=== PATIENT | male | born 1945 | race Caucasian/White ===

== ENCOUNTER → 2024-06-03 | Outpatient (CLI) | payer MEDICARE, BC, SELFPAY ==
--- NOTE | 2024-06-03 14:30 | XR_ITS ---
Examination: Bone densitometry Date and time of exam:June 03, 2024 1422 hours INDICATIONS: Family history, mother osteoporosis, personal history rheumatoid arthritis Technique: Lumbar spine and forearm total bone mineralization values of an calculated. Peak reference and age match control results have been displayed. Findings: Lumbar spine total bone mineralization is1.348 gm/cm2. This is 2.5 standard deviations above peak reference. This is 3.6 standard deviations above age-matched controls. Forearm total bone mineralization is 0.675 gm/cm2 This is 0.1 standard deviations below peak reference. This is 1.4 standard deviations above age-matched controls Impression: There is normal mineralization based on lumbar spine measurements. There is normal mineralization based on forearm measurements
== END | disposition home or self-care (01) ==
PROVIDERS: Referring Provider Family Medicine; Visit Provider Family Medicine
DX: Z13.820 Encounter for screening for osteoporosis (principal)
CPT/HCPCS: 77080

== ENCOUNTER → 2024-07-16 | Outpatient (CLI) | payer MEDICARE, BC, SELFPAY ==
[2024-07-16 13:40] LABS: Basophils # (Auto) 0.1 Thou/mm3 (0.0-0.2); Basophils % (Auto) 1 % (0-2.5); Eosinophils # (Auto) 0.1 Thou/mm3 (0.0-0.5); Eosinophils % (Auto) 2 % (0-10); Hematocrit 52.6 % (41.0-53.0); Hemoglobin 17.5 g/dL (13.5-16.0); Immature Granulocytes % (Auto) 0 % (0-0); Immature Granulocytes Auto 0.03 Thou/mm3 (0.00-0.00); Lymphocytes # (Auto) 1.6 Thou/mm3 (1.0-4.8); Lymphocytes % (Auto) 20 % (10-50); Mean Corpuscular HGB Conc 33.3 g/dl (31.0-37.0); Mean Corpuscular Hemoglobin 32.1 pg (25.0-35.0); Mean Corpuscular Volume 97 fL (80-100); Monocytes # (Auto) 0.9 Thou/mm3 (0.0-0.8); Monocytes % (Auto) 11 % (0-12); Neutrophils # (Auto) 5.4 Thou/mm3 (1.8-7.7); Neutrophils % (Auto) 67 % (37-80); Nucleated Red Blood Cell % 0 /100 WBC (0); Platelet Count 170 Thou/mm3 (140-440); RDW Standard Deviation 57.1 fL (35.1-43.9); Red Blood Count 5.45 Miln/mm3 (4.50-5.90); White Blood Count 8.1 Thou/mm3 (3.8-10.6)
== END | disposition home or self-care (01) ==
LOC: COPL 13:02
PROVIDERS: PCP Family Medicine; Referring Provider Family Medicine; Visit Provider Family Medicine
DX: J18.9 Pneumonia, unspecified organism (principal)
CPT/HCPCS: 36415; 85025

== ENCOUNTER 2025-02-16 16:12 | Emergency (ER) | payer MEDICARE, BC, SELFPAY ==
[2025-02-16 16:13] VITALS: BMI 31.4
[2025-02-16 16:25] VITALS: BP 146/92; PULSE 72; RESP 20; TEMP 36.9; O2SAT 95
--- NOTE | 2025-02-16 16:54 | EDNOTE_ITS ---
<Statement entered by Rachel Herrera MD - 03/03/25 06:35> As co-signing physician, I was present and available for consult prn. I concur with the plan and care as documented by the midlevel provider. ED Back Injury Pain RME/HPI General Chief Complaint: General Adult/Misc Complain Stated Complaint: SCIATIC PAIN X 2 DAYS Time Seen by Provider: 02/16/25 16:49 Source: patient Arrival date/time: 02/16/25 16:12 79-year-old male with a history of hyperlipidemia, hypertension, sciatica presents to the emergency room with a chief complaint of right sided sciatic pain x 2 days Mode of arrival: ambulatory Limitations: no limitations Related Data Home Medications ?Medication ?Instructions ?Recorded ?Confirmed atenolol 50 mg tablet 25 mg PO DAILY ##180 7 07/07/23 niacin 500 mg tablet 500 mg PO QDAY 02/19/1811/23 zolpidem 10 mg tablet (Ambien) 10 mg PO QPM 02/19/18 0 07/07/23 losartan 100 mg tablet 100 mg PO QDAY 06/03/1911/23 lovastatin 20 mg tablet 20 mg PO QDAY 01/27/2007/07 semaglutide 2 mg/dose (8 mg/3 mL) 2 mg subcut QWEEK 07/07/23 subcutaneous pen injector (Ozempic) vibegron 75 mg tablet (Gemtesa) 75 mg PO QDAY 07/07/23 07/07/23 Previous Rx's ?Medication ?Instructions ?Recorded hydrocodone 5 mg-acetaminophen 325 1 tab PO TID #20 ta bs 01/27/22 mg tablet Allergies Allergy/AdvReac Type Severity Reaction Status Date / Time bee venom protein (honey bee) Allergy Severe Anaphylaxis Verified 02/16/25 16:22 beet Allergy Severe Hives Verified 02/16/25 16:22 cashew nut Allergy Severe Diarrhea Verified 02/16/25 16:22 hydromorphone HCl Allergy Severe Hives Verified 02/16/25 16:22 Iodinated Contrast Media Allergy Severe Hives Verified 02/16/25 16:22 iodine Allergy Severe Hives Verified 02/16/25 16:22 morphine Allergy Severe Anaphylaxis Verified 02/16/25 16:22 Penicillins Allergy Severe Anaphylaxis Verified 02/16/25 16:22 primidone (From Mysoline) Allergy Severe Hives Verified 02/16/25 16:22 metronidazole Allergy Intermediate Diarrhea Verified 02/16/25 16:22 levofloxacin AdvReac Severe Swelling Verified 02/16/25 16:22 Review of Systems Review of Systems Systems Reviewed: All systems reviewed, normal except as documented Constitutional Constitutional: Reports system reviewed and no additional complaints, except as documented, Denies fatigue, Denies fever(s), Denies headache(s) and Denies weakness Eyes Eyes: Reports system reviewed and no additional complaints, except as documented, Denies blurry vision and Denies change in vision ENT Ears, Nose, Mouth, and Throat: Reports system reviewed and no additional complaints, except as documented, Denies otalgia, Denies headache(s), Denies nasal congestion, Denies throat swelling and Denies vertigo Cardiovascular Cardiovascular: Reports system reviewed and no additional complaints, except as documented, Denies chest pain, Denies dyspnea and Denies dyspnea on exertion Respiratory Respiratory: Reports system reviewed and no additional complaints, except as documented, Denies chest congestion, Denies cough, Denies dyspnea, Denies dyspnea on exertion and Denies wheezing Gastrointestinal Gastrointestinal: Reports system reviewed and no additional complaints, except as documented, Denies abdominal pain, Denies cramping, Denies nausea and Denies vomiting Genitourinary Genitourinary: Reports system reviewed and no additional complaints, except as documented, Denies dysuria and Denies hematuria Musculoskeletal Musculoskeletal: Reports system reviewed and no additional complaints, except as documented, Reports back pain and Reports radiating pain into limb Integumentary/Breasts Skin/Breast: Reports system reviewed and no additional complaints, except as documented and Denies wounds Neurologic Neurologic: Reports system reviewed and no additional complaints, except as documented, Denies confusion, Denies headache(s), Denies lack of coordination, Denies vertigo and Denies weakness Psychiatric Psychiatric: Reports system reviewed and no additional complaints, except as documented, Denies anxiety, Denies confusion, Denies depression, Denies paranoia, Denies suicidal ideation and Denies tactile hallucinations Endocrine Endocrine: Reports system reviewed and no additional complaints, except as documented and Denies fatigue Hematologic/Lymphatic Hematologic/Lymphatic: Reports system reviewed and no additional complaints, except as documented and Denies lymphadenopathy Allergic/Immunologic Allergic/Immunologic: Reports system reviewed and no additional complaints, except as documented, Denies throat swelling, Denies urticaria and Denies wheezing Past Medical History Past Medical History NEUROLOGIC: Positive Neurological Disorders, Cerebrovascular Accident and Head Trauma; Negative Seizures CARDIAC: Positive Cardiac Disorders, Atrial Fibrillation, Hypercholesterolemia and Hypertension; Negative Heart Murmur or Congestive Heart Failure RESPIRATORY: Positive Asthma, Bronchitis, Pneumonia and Sleep Apnea; Negative Chronic Obstructive Pulmonary Disease (COPD) GASTROINTESTINAL: Positive Gastrointestinal Disorders, Gastrointestinal Bleed, Diverticulosis, Ulcer and Hemorrhoids GENITOURINARY: Positive Prostate Cancer; Negative Genitourinary Disorders or Renal Disease MUSCULOSKELETAL: Positive Musculoskeletal Disorders, Arthritis, Gout, Carpal Tunnel Syndrome and Fractures ENT: Positive Head Trauma; Negative Glaucoma ENDOCRINE: Negative Endocrine Disorders, Diabetes Mellitus Type 1 or Diabetes Mellitus Type 2 HEMATOLOGIC: Negative Blood Disorders or Sickle Cell Disease OTHER HISTORY: Positive Hospitalization, Shingles, Blood Transfusions, MRSA, Chicken Pox, Measles, Mumps and Prostate Cancer; Negative Blood Transfusion Reaction or Anesthesia Reactions Family History FAMILY HISTORY: Positive Family Psychiatric Problems, Family Cardiac Disorders and Family Surgery; Negative Family Cancer Surgical History SURGICAL: Positive Pacemaker, Angiogram, Tonsillectomy, Joint Replacement and Open Reduction Internal Fixation Social History SMOKING STATUS: Former smoker ED Exam General Limitations: Present no limitations General appearance: Present alert and in no apparent distress Head Head exam: Present atraumatic Eye Eye exam: Present normal appearance, PERRL and EOMI ENT ENT exam: Present normal exam, normal oropharynx and mucous membranes moist Neck Neck exam: Present normal inspection, full ROM and trachea midline Chest Chest inspection: Present normal inspection and symmetric chest wall rise Respiratory Respiratory exam: Present normal lung sounds bilaterally Cardiovascular Cardiovascular exam: Present regular rate, normal rhythm and normal heart sounds Abdominal Exam Abdominal exam: Present soft and normal bowel sounds Extremities Exam Extremities exam: Present normal inspection and full ROM Back Exam Back exam: Present normal inspection, full ROM and sciatic notch tenderness (R) Neurological Exam Neurological exam: Present alert, oriented X3 and CN II-XII intact Psychiatric Psychiatric exam: Present normal affect and normal mood Skin Skin exam: Present warm, dry, intact and normal color Course Quality Measures none Orders Category Date Time Status Ketorolac Inj [Toradol Inj] Med 02/16/25 16:53 Once 60 mg IM X1 ONE Vital Signs Vital signs: Vital Signs Temperature 98.5 F 02/16/25 16:25 Pulse Rate 72 02/16/25 16:25 Respiratory Rate 20 02/16/25 16:25 Blood Pressure 146/92 H 02/16/25 16:25 Pulse Oximetry (%) 95 02/16/25 16:25 Oxygen Delivery Method Room Air 02/16/25 16:25 O2 saturation 95% within normal limits Back Pain / Injury MDM Narrative MDM Narrative:: 79-year-old male with a history of hyperlipidemia, hypertension, sciatica presents to the emergency room with a chief complaint of right sided sciatic pain x 2 days Patient is hemodynamically stable and in no apparent distress Patient's only complaint is due to his sciatica. Patient states he is having numbness running down his right leg. Patient has a history of back surgeries and sees a spinal specialist already A shot of Toradol was given with significant improvement to the patient's symptoms Patient was discharged and educated to follow-up with primary care provider in the next 24 to 48 hours and return to the emergency room for any evidence of worsening signs or symptoms Patient data External records reviewed:: [facility] previous records Clinical information provided by:: patient Social determinants that could affect healthcare access:: none Patient has the following chronic illnesses:: Atrial fibrillation, BPH, hyperlipidemia, How is presenting disease/condition affected by chronic disease/condition?: no chronic disease Evaluation data The following diagnostics were reviewed and interpreted by me:: lab results and radiology exam(s) Lab and/or radiology exams considered but not ordered:: Labs and radiology exams considered and ordered Interpretation Summary: N/A Medications / Prescriptions Medications or Prescriptions considered but not ordered:: Medication given Medication administrations:: Medication given Consultations Consultation(s) initiated? (list below): No Diagnosis Differential diagnosis back pain/injury: lumbar radiculopathy, sciatica and thoracic back pain Most likely diagnosis given after review of the tests above:: Sciatica Admission Indicated Admission indicated?: not indicated Admission Request Was there a request for admission?: No Disposition Plan Disposition Plan: Discharge Discharge Attestation Discharge Attestation: The patient and all family members were given an opportunity to ask questions and understood the discharge instructions. Discharge instructions specifically effects, indications for sooner follow up or return to the emergency department, and the expected course of current diagnosis. Patient condition: Stable Discharge Plan Plan Patient Disposition: HOME (Self Care) Discharge Disposition comment: Stable Prescriptions/Referrals Prescriptions/Med Rec: No Action Ozempic 2 mg/dose (8 mg/3 mL) pen injector 2 mg subcut QWEEK Gemtesa 75 mg tablet 75 mg PO QDAY atenolol 50 MG tablet 25 mg PO DAILY Qty: 180 niacin 500 mg Tablet 500 mg PO QDAY zolpidem [Ambien] 10 mg Tablet 10 mg PO QPM losartan 100 mg Tablet 100 mg PO QDAY lovastatin 20 mg Tablet 20 mg PO QDAY hydrocodone-acetaminophen 5-325 mg tablet 1 tab PO TID MDD 3 Qty: 20 0RF Referrals: No Primary/Family,Physician [Primary Care Provider] - In 1 week Problem List Clinical Impression: Sciatica of right side Patient/Caregiver Discharge Instructions Education Materials: ED Sciatica Additional Instructions: Please follow-up with your primary care provider in the next 24 to 48 hours For any evidence of worsening signs or symptoms return to the emergency room immediately Print Language: Persian Stand Alone Forms: Jimena Award Info., Patient Portal Info Letter PA/HEAD BANQUET WAITER/WAITRESS Supervising Physician PA/HEAD BANQUET WAITER/WAITRESS Supervising Physician: Dr. HERRERA
[2025-02-16] MEDS: KETOROLAC INJ 60 MG/2 ML VIAL IM (17:07)
== END 2025-02-16 17:11 | disposition home or self-care (01) ==
PROVIDERS: Emergency Provider Emergency Medicine
DX: M54.31 Sciatica, right side (principal); E78.5 Hyperlipidemia, unspecified; I10 Essential (primary) hypertension; I48.91 Unspecified atrial fibrillation; N40.0 Benign prostatic hyperplasia without lower urinary tract symptoms; Z79.85 Long-term (current) use of injectable non-insulin antidiabetic drugs; Z79.899 Other long term (current) drug therapy; Z88.0 Allergy status to penicillin; Z88.5 Allergy status to narcotic agent; Z88.3 Allergy status to other anti-infective agents; Z88.8 Allergy status to other drugs, medicaments and biological substances; Z91.030 Bee allergy status; Z91.041 Radiographic dye allergy status
CPT/HCPCS: 96372; 99282; J1885

== ENCOUNTER 2025-06-13 10:06 | Emergency (ER) | payer MEDICARE, BC, SELFPAY ==
[2025-06-13 10:57] VITALS: BP 172/121; PULSE 72; RESP 16; TEMP 36.6; O2SAT 98
--- NOTE | 2025-06-13 11:01 | XR_ITS ---
Examination: CT maxillofacial, without intravenous contrast. 2-D sagittal reconstructions. 3-D reconstructions. Date and time of exam: June 13, 2025, 11:55 a.m. INDICATIONS: Patient fell today with injury to the face, facial pain CTDI: vol (mGy): 20.3 DLP: (mGycm): 391 Technique: Multiple axial images of maxillofacial region, 3.0 mm slice thickness. 2-D sagittal and coronal reconstructions. 3-D reconstructions. Low dose protocols were performed. One or more of the following dose reduction techniques were used; automated exposure control, adjustment of the mA and/or KV according to patient size, use of iterative reconstruction technique. Findings: Acute comminuted blowout fracture left inferior orbital rim, coronal image 47 Downward herniation of the inferior rectus muscle although no obvious entrapment Frontal bone intact Nondisplaced left nasal bone fracture Nondisplaced fractures of the medial left orbital wall Mandible and maxilla intact No depression zygomatic arches Nondisplaced fracture posterior lateral margin left maxillary antrum image 78 IMPRESSION: Comminuted large acute blowout fracture left inferior orbital rim Downward herniation of the left inferior rectus muscle although no definite entrapment, clinical correlation advised Nondisplaced left nasal bone fracture Nondisplaced fractures medial left orbital wall Nondisplaced fracture posterolateral margin left maxillary antrum
--- NOTE | 2025-06-13 11:01 | XR_ITS ---
EXAMINATION: AP chest single view TECHNIQUE: AP portable semiupright chest single view Date and time: June 13, 2025, 12:46 p.m. INDICATIONS: Coughing patient fell today with injury to the chest, chest pain FINDINGS: Mild to moderate enlargement cardiac contour Transvenous dual-chamber bipolar cardiac leads satisfactory position No pneumothorax or hemothorax Ribs appear intact IMPRESSION: No pneumothorax pulmonary contusion or hemothorax
--- NOTE | 2025-06-13 11:01 | XR_ITS ---
Examination: CT cervical spine without contrast 2-D sagittal reconstructions 2-D coronal reconstructions 3-D reconstructions. Exam date and time: June 13, 2025, 1150 hours INDICATIONS: Patient fell today with injury to the neck, neck pain CTDI:vol (mGy) 18.3 DLP: (mGycm) 440 Technique: Multiple 2 mm axial sections of the cervical spine have been obtained. The coronal and sagittal reconstructions have been obtained. 3-D reconstructions have been obtained. Low dose protocols were performed. One or more of the following dose reduction techniques were used; automated exposure control, adjustment of the mA and/or KV according to patient size, use of iterative reconstruction technique. Findings: Axial sections demonstrate intact base of the skull. Cervical fusion C5-C7 Grade 1 anterolisthesis C4 on C5 with advanced disc narrowing at this level C1 exhibit satisfactory relationship to the odontoid. No acute cervical vertebral body fracture seen. Alignment posterior spinous processes satisfactory. Impression: No acute cervical fracture.
--- NOTE | 2025-06-13 11:01 | EKG_ITS ---
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
--- NOTE | 2025-06-13 11:01 | XR_ITS ---
Examination: CT brain head without contrast. 2-D sagittal coronal reconstructions Date and time of exam: 06/13/2025 at 11:55 a.m. comparison study 01/26/2022 CTDI: vol (mGy): 55.0 DLP: (mGycm): 1125 INDICATION: Frontal headaches with the pain extending down to his neck with pain and swelling in the facial bone region after the patient fell Technique: Multiple CT axial sections of the brain have been obtained, 5 mm slice thickness. Contrast has not been administered. 2-D sagittal, coronal reconstructions have been obtained Low dose protocols were performed. One or more of the following dose reduction techniques were used; automated exposure control, adjustment of the mA and/or KV according to patient size, use of iterative reconstruction technique. Findings: There is mild enlargement of the ventricles, but there is size on careful measurements has not changed since the previous study. The diameter of the third ventral is very minimally larger than on the previous CT There are a large number of multifocal ill-defined areas of decreased attenuation involving the periventricular and subcortical white matter throughout both cerebral hemispheres. This was not present much at all on the previous study, it represents a significant change. In the region of the anterior limb of the internal capsule on the right there is a thick C-shaped area of significant decreased attenuation, it measures 6.4 x 19.4 mm in transverse and longitudinal dimensions this could relate to a more prominent area of microvascular disease with leukoencephalopathy involving the white matter here. If this were to represent an infarct whether chronic or acute, the patient would have severe neurologic changes in the structures innervated by the anterior limb of the internal capsule on the right. I strongly doubt that this relates to acute infarction. There is moderate cortical atrophy overlying both right and left frontal lobes definitely increased when compared with the prior study. There is diffuse vague increased radiodensity involving the horizontal portions of the right and left middle cerebral arteries with heavy calcification in the region of the cavernous sinus. The diffuse increased density of these arteries relates to diffuse but mild calcification No abnormalities are seen in the brainstem or cerebellum. There is very significant DJD involving the joint space between the anterior mass of C1 and the odontoid process there is patchy infiltrate in the anterior ethmoid air cells on the left, and there is a very large air-fluid level opacifying two thirds of the left maxillary sinus both of these areas of paranasal sinus disease were not present on the previous CT exam. IMPRESSION: 1. Since the previous CT the patient has developed air-fluid level with opacification of two thirds of the left maxillary sinus, an infiltrate in the anterior ethmoid air cells on the left, these areas were clear normal on the prior CT. 2. Since the prior CT the patient has developed very significant diffuse and patchy areas of abnormal decreased attenuation involving the periventricular and subcortical white matter. 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 3. As described above, there is a C-shaped area of more prominent decreased attenuation in the region of the anterior limb of the internal capsule on the right. This likely relates to a more prominent area of leukoencephalopathy, however it conceivably could relate to an old infarct. However the patient would have major neurologic deficits in this region, if this relates to a previous infarct rather than leukoencephalopathy 4. Moderate dilatation of the ventricles and third ventricle pretty much stable and unchanged 5. Diffuse hazy increased opacity of the middle cerebral arteries bilaterally consistent with diffuse very mild atherosclerotic calcification, there is more prominent calcification in the internal carotid arteries in the cavernous sinus region. 6 no evidence of acute cerebral infarct is identified in Impression: Negative for acute hemorrhage, mass effect or midline shift
--- NOTE | 2025-06-13 11:04 | PD.EDFALL ---
ED Fall Injury RME/HPI General Chief Complaint: Fall Stated Complaint: S/P FALL LACERATION TO FACE Time Seen by Provider: 06/13/25 10:55 Arrival date/time: 06/13/25 10:06 Limitations: no limitations RME / HPI RME / HPI Narrative: 80 year old male with history of atrial fibrillation s/p watchman device implantation, hypertension, BPH presents to the ED after a ground-level fall. Patient was walking inside his home when he tripped on a rug, falling forward and striking his face on a coffee table. Per family, the patient briefly lost consciousness for several seconds following the fall. Family state the patient was complaining of pain to his left hip. However, he was able to stand and walk with the assistance of family. Denies any other injuries. In the ED, the patient remains alert and oriented and complains of pain in his left hip and face, most severe just below the left eye. No other signs or symptoms are reported at this time. Related Data Home Medications ?Medication ?Instructions ?Recorded ?Confirmed atenolol 50 mg tablet 25 mg PO DAILY ##180 05/18/17 07/07/23 niacin 500 mg tablet 500 mg PO QDAY 02/19/18 07/07/23 zolpidem 10 mg tablet (Ambien) 10 mg PO QPM 02/19/18 07/07/23 losartan 100 mg tablet 100 mg PO QDAY 06/03/19 07/07/23 lovastatin 20 mg tablet 20 mg PO QDAY 01/27/20 07/07/23 semaglutide 2 mg/dose (8 mg/3 mL) 2 mg subcut QWEEK 07/07/23 07/07/23 subcutaneous pen injector (Ozempic) vibegron 75 mg tablet (Gemtesa) 75 mg PO QDAY 07/07/23 07/07/23 Previous Rx's ?Medication ?Instructions ?Recorded hydrocodone 5 mg-acetaminophen 325 1 tab PO TID #20 tabs 01/27/22 mg tablet clindamycin HCl 300 mg capsule 600 mg (2 x 300 mg) PO TID #60 caps 06/13/25 (Cleocin HCl) Allergies Allergy/AdvReac Type Severity Reaction Status Date / Time bee venom protein (honey bee) Allergy Severe Anaphylaxis Verified 02/16/25 16:22 beet Allergy Severe Hives Verified 02/16/25 16:22 cashew nut Allergy Severe Diarrhea Verified 02/16/25 16:22 hydromorphone HCl Allergy Severe Hives Verified 02/16/25 16:22 Iodinated Contrast Media Allergy Severe Hives Verified 02/16/25 16:22 iodine Allergy Severe Hives Verified 02/16/25 16:22 morphine Allergy Severe Anaphylaxis Verified 02/16/25 16:22 Penicillins Allergy Severe Anaphylaxis Verified 02/16/25 16:22 primidone (From Mysoline) Allergy Severe Hives Verified 02/16/25 16:22 metronidazole Allergy Intermediate Diarrhea Verified 02/16/25 16:22 levofloxacin AdvReac Severe Swelling Verified 02/16/25 16:22 Review of Systems Review of Systems Systems Reviewed: All systems reviewed, normal except as documented Past Medical History Past Medical History NEUROLOGIC: Positive Neurological Disorders, Cerebrovascular Accident and Head Trauma CARDIAC: Positive Cardiac Disorders, Atrial Fibrillation, Hypercholesterolemia and Hypertension RESPIRATORY: Positive Asthma, Bronchitis, Pneumonia and Sleep Apnea GASTROINTESTINAL: Positive Gastrointestinal Disorders, Gastrointestinal Bleed, Diverticulosis, Ulcer and Hemorrhoids GENITOURINARY: Positive Prostate Cancer MUSCULOSKELETAL: Positive Musculoskeletal Disorders, Arthritis, Gout, Carpal Tunnel Syndrome and Fractures ENT: Positive Head Trauma OTHER HISTORY: Positive Hospitalization, Shingles, Blood Transfusions, MRSA, Chicken Pox, Measles, Mumps and Prostate Cancer Family History FAMILY HISTORY: Positive Family Psychiatric Problems, Family Cardiac Disorders and Family Surgery Surgical History SURGICAL: Positive Pacemaker, Angiogram, Tonsillectomy, Joint Replacement and Open Reduction Internal Fixation Social History SMOKING STATUS: Never smoker ED Exam General Limitations: Present no limitations General appearance: Present alert and other (Arrived with blood on face) Head Head exam: Present normocephalic ENT ENT exam: Present normal oropharynx, mucous membranes moist and other (There are two facial lacerations, one on the midline nose measuring 3 cm and the second just below the left eye measuring 2.5cm, tenderness over the left facial area, left cheek exquisitely tender to palpation ) Neck Neck exam: Present full ROM, trachea midline and other (tenderness to palpation of the left sternocleidomastoid area) Chest Chest inspection: Present normal inspection and symmetric chest wall rise Respiratory Respiratory exam: Present normal lung sounds bilaterally Cardiovascular Cardiovascular exam: Present regular rate, normal rhythm and normal heart sounds Abdominal Exam Abdominal exam: Present soft and normal bowel sounds Extremities Exam Extremities exam: Present full ROM and other (Bilateral TKR scars, complaining of pain to the left hip but was able to left leg and hold in the air at about 60 degrees, no leg shortening) Back Exam Back exam: Present normal inspection and full ROM Neurological Exam Neurological exam: Present alert, oriented X3 and CN II-XII intact Psychiatric Psychiatric exam: Present normal affect and normal mood Skin Skin exam: Present warm, dry, intact and normal color Course Quality Measures none Orders Category Date Time Status 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 NOW Care 06/13/25 11:01 Active Continuous Pulse Oximetry NOW Care 06/13/25 11:01 Completed EKG (ED ONLY) *Do not use* NOW Care 06/13/25 11:01 Completed Insert IV NOW Care 06/13/25 11:01 Active Irrigate Wound NOW Care 06/13/25 11:05 Active Set Up Suture Tray NOW Care 06/13/25 11:05 Active Wound Care NOW Care 06/13/25 11:06 Active Referral - Party Plan Sales Host/Hostess Stat Cons 06/13/25 14:[address] cervical spine wo con Stat Exams 06/13/25 11:[address] facial bones wo con Stat Exams 06/13/25 11:[address] head/brain wo con Stat Exams 06/13/25 11:[address] pelvis wo con Stat Exams 06/13/25 11:51 Completed EKG (ED Only) Stat Exams 06/13/25 11:01 Draft XR chest 1V portable Stat Exams 06/13/25 11:01 Completed CBC Stat Lab 06/13/25 11:00 Completed Comprehensive Metabolic Panel Stat Lab 06/13/25 11:00 Completed Partial Thromboplastin Time Stat Lab 06/13/25 12:09 Completed Prothrombin Time with INR Stat Lab 06/13/25 12:09 Completed Troponin I Stat Lab 06/13/25 11:00 Completed Acetaminophen Ivpb [Ofirmev Inj] Med 06/13/25 12:13 Discontinued 1,000 mg in 100 ml IV X1 Clindamycin 900Mg Ivpb [Cleocin/D5w Ivpb] 900 mg Med 06/13/25 12:40 Discontinued Pre-Mixed [Pre-mixed Bag] 1 bag IV X1 Ketorolac Inj [Toradol Inj] Med 06/13/25 11:27 Discontinued 15 mg IVP X1 ONE Lidocaine 1% Vial 20 ml [Xylocaine 1% 20 ML] Med 06/13/25 11:05 Discontinued 20 ml INFL X1 ONE Ondansetron Inj [Zofran Inj] Med 06/13/25 11:03 Discontinued 4 mg IVP X1 ONE Sodium Chloride 0.9% 1000 ml [Ns] 1,000 ml Med 06/13/25 11:01 Active IV 100 mls/hr Sodium Cl Irrig Soln [NS Irrig] Med 06/13/25 11:05 Discontinued 500 ml IRRIG X1 ONE TET,DIP/PERT AC (Adult)-Tdap [Boostrix Adult (Tdap) Med 06/13/25 11:05 Discontinued Vacc] 0.5 ml IMI .ONCE ONE fentaNYL INJ [Sublimaze Inj] Med 06/13/25 13:25 Discontinued 100 mcg IVP X1 ONE fentaNYL INJ [Sublimaze Inj] Med 06/13/25 16:46 Discontinued 100 mcg IVP X1 ONE fentaNYL INJ [Sublimaze Inj] Med 06/13/25 11:04 Discontinued 50 mcg IVP X1 ONE Vital Signs Vital signs: Vital Signs Temperature 97.8 F 06/13/25 10:57 Pulse Rate 72 06/13/25 10:57 Respiratory Rate 16 06/13/25 10:57 Blood Pressure 172/121 H 06/13/25 10:57 Pulse Oximetry (%) 98 06/13/25 10:57 Oxygen Delivery Method Room Air 06/13/25 10:57 Pulse ox is 98% on room air which is adequate. PROCEDURES: Procedure Comment Patient had two lacerations on face, measuring 3cm and 2.5cm, that were sutured by resident Dr. Newell. Please refer to his note for laceration repair procedure. Fall MDM Narrative MDM Narrative:: ISharla am scribing for and in the presence of Dr. Velazquez. 1530p: I spoke with [facility] transfer nurse. Discussed patients PMHx, HPI, ED course, exam findings, labs, and radiology results. 1618p: I spoke with Liquid Yeast Supervisor Dr. Paulson at [facility]. Discussed patients PMHx, HPI, ED course, exam findings, labs, and radiology results. He advised the patient follow up with them as an outpatient and provided us with his office address and phone number. Patient has remained stable through ED course. We reviewed all the results, analysis, and treatment plans. Patient is amenable to discharge. Strict return precautions were outlined. Dr. Paulson [address] [place] [address] Patient data External records reviewed:: [facility] previous records Clinical information provided by:: patient Social determinants that could affect healthcare access:: none Patient has the following chronic illnesses:: atrial fibrillation s/p watchman device implantation, hypertension, BPH s/p bilateral TKR How is presenting disease/condition affected by chronic disease/condition?: exacerbated by Evaluation data The following diagnostics were reviewed and interpreted by me:: EKG tracing(s) (EKG @ 11:38am, interpreted by me, atrial fibrillation, rate 61, no STEMI) Lab and/or radiology exams considered but not ordered:: None Interpretation Summary: Ordering Physician: Brody Velazquez MD Date of Service: 06/13/25 Procedure(s): CT cervical spine wo con Accession Number(s): [id number] cc: Brody Velazquez MD; Sukhwinder Gary MD; Mercedes Mathais MD~ Examination: CT cervical spine without contrast 2-D sagittal reconstructions 2-D coronal reconstructions 3-D reconstructions. Exam date and time: June 13, 2025, 1150 hours INDICATIONS: Patient fell today with injury to the neck, neck pain CTDI:vol (mGy) 18.3 DLP: (mGycm) 440 Technique: Multiple 2 mm axial sections of the cervical spine have been obtained. The coronal and sagittal reconstructions have been obtained. 3-D reconstructions have been obtained. Low dose protocols were performed. One or more of the following dose reduction techniques were used; automated exposure control, adjustment of the mA and/or KV according to patient size, use of iterative reconstruction technique. Findings: Axial sections demonstrate intact base of the skull. Cervical fusion C5-C7 Grade 1 anterolisthesis C4 on C5 with advanced disc narrowing at this level C1 exhibit satisfactory relationship to the odontoid. No acute cervical vertebral body fracture seen. Alignment posterior spinous processes satisfactory. Impression: No acute cervical fracture. Dictated By: Sukhwinder Gary MD Signed By: <Electronically signed by Sukhwinder Gary MD in OV> 06/13/25 1338 Ordering Physician: Brody Velazquez MD Date of Service: 06/13/25 Procedure(s): XR chest 1V portable Accession Number(s): [id number] cc: Brody Velazquez MD; Sukhwinder Gary MD; Mercedes Mathias MD~ EXAMINATION: AP chest single view TECHNIQUE: AP portable semiupright chest single view Date and time: June 13, 2025, 12:46 p.m. INDICATIONS: Coughing patient fell today with injury to the chest, chest pain FINDINGS: Mild to moderate enlargement cardiac contour Transvenous dual-chamber bipolar cardiac leads satisfactory position No pneumothorax or hemothorax Ribs appear intact IMPRESSION: No pneumothorax pulmonary contusion or hemothorax Dictated By: Sukhwinder Gary MD Signed By: <Electronically signed by Sukhwinder Gary MD in OV> 06/13/25 1343 Ordering Physician: Brody Velazquez MD Date of Service: 06/13/25 Procedure(s): CT facial bones wo con Accession Number(s): [id number] cc: Brody Velazquez MD; Sukhwinder Gary MD; Mercedes Mathias MD~ Examination: CT maxillofacial, without intravenous contrast. 2-D sagittal reconstructions. 3-D reconstructions. Date and time of exam: June 13, 2025, 11:55 a.m. INDICATIONS: Patient fell today with injury to the face, facial pain CTDI: vol (mGy): 20.3 DLP: (mGycm): 391 Technique: Multiple axial images of maxillofacial region, 3.0 mm slice thickness. 2-D sagittal and coronal reconstructions. 3-D reconstructions. Low dose protocols were performed. One or more of the following dose reduction techniques were used; automated exposure control, adjustment of the mA and/or KV according to patient size, use of iterative reconstruction technique. Findings: Acute comminuted blowout fracture left inferior orbital rim, coronal image 47 Downward herniation of the inferior rectus muscle although no obvious entrapment Frontal bone intact Nondisplaced left nasal bone fracture Nondisplaced fractures of the medial left orbital wall Mandible and maxilla intact No depression zygomatic arches Nondisplaced fracture posterior lateral margin left maxillary antrum image 78 IMPRESSION: Comminuted large acute blowout fracture left inferior orbital rim Downward herniation of the left inferior rectus muscle although no definite entrapment, clinical correlation advised Nondisplaced left nasal bone fracture Nondisplaced fractures medial left orbital wall Nondisplaced fracture posterolateral margin left maxillary antrum Dictated By: Sukhwinder Gary MD Signed By: <Electronically signed by Sukhwinder Gary MD in OV> 06/13/25 1341 Ordering Physician: Brody Velazquez MD Date of Service: 06/13/25 Procedure(s): CT head/brain wo [facility] Accession Number(s): [id number] cc: Brody Velazquez MD; Sukhwinder Quintero MD; Mercedes Mathias MD~ Examination: CT brain head without contrast. 2-D sagittal coronal reconstructions Date and time of exam: 06/13/2025 at 11:55 a.m. comparison study 01/26/2022 CTDI: vol (mGy): 55.0 DLP: (mGycm): 1125 INDICATION: Frontal headaches with the pain extending down to his neck with pain and swelling in the facial bone region after the patient fell Technique: Multiple CT axial sections of the brain have been obtained, 5 mm slice thickness. Contrast has not been administered. 2-D sagittal, coronal reconstructions have been obtained Low dose protocols were performed. One or more of the following dose reduction techniques were used; automated exposure control, adjustment of the mA and/or KV according to patient size, use of iterative reconstruction technique. Findings: There is mild enlargement of the ventricles, but there is size on careful measurements has not changed since the previous study. The diameter of the third ventral is very minimally larger than on the previous CT There are a large number of multifocal ill-defined areas of decreased attenuation involving the periventricular and subcortical white matter throughout both cerebral hemispheres. This was not present much at all on the previous study, it represents a significant change. In the region of the anterior limb of the internal capsule on the right there is a thick C-shaped area of significant decreased attenuation, it measures 6.4 x 19.4 mm in transverse and longitudinal dimensions this could relate to a more prominent area of microvascular disease with leukoencephalopathy involving the white matter here. If this were to represent an infarct whether chronic or acute, the patient would have severe neurologic changes in the structures innervated by the anterior limb of the internal capsule on the right. I strongly doubt that this relates to acute infarction. There is moderate cortical atrophy overlying both right and left frontal lobes definitely increased when compared with the prior study. There is diffuse vague increased radiodensity involving the horizontal portions of the right and left middle cerebral arteries with heavy calcification in the region of the cavernous sinus. The diffuse increased density of these arteries relates to diffuse but mild calcification No abnormalities are seen in the brainstem or cerebellum. There is very significant DJD involving the joint space between the anterior mass of C1 and the odontoid process there is patchy infiltrate in the anterior ethmoid air cells on the left, and there is a very large air-fluid level opacifying two thirds of the left maxillary sinus both of these areas of paranasal sinus disease were not present on the previous CT exam. IMPRESSION: 1. Since the previous CT the patient has developed air-fluid level with opacification of two thirds of the left maxillary sinus, an infiltrate in the anterior ethmoid air cells on the left, these areas were clear normal on the prior CT. 2. Since the prior CT the patient has developed very significant diffuse and patchy areas of abnormal decreased attenuation involving the periventricular and subcortical white matter. 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 3. As described above, there is a C-shaped area of more prominent decreased attenuation in the region of the anterior limb of the internal capsule on the right. This likely relates to a more prominent area of leukoencephalopathy, however it conceivably could relate to an old infarct. However the patient would have major neurologic deficits in this region, if this relates to a previous infarct rather than leukoencephalopathy 4. Moderate dilatation of the ventricles and third ventricle pretty much stable and unchanged 5. Diffuse hazy increased opacity of the middle cerebral arteries bilaterally consistent with diffuse very mild atherosclerotic calcification, there is more prominent calcification in the internal carotid arteries in the cavernous sinus region. 6 no evidence of acute cerebral infarct is identified in Impression: Negative for acute hemorrhage, mass effect or midline shift Dictated By: Sukhwinder Quintero MD Signed By: <Electronically signed by Sukhwinder Quintero MD in OV> 06/13/25 1340 Ordering Physician: Brody Velazquez MD Date of Service: 06/13/25 Procedure(s): CT pelvis wo [facility] Accession Number(s): [id number] cc: Brody Velazquez MD; Sukhwinder Quintero MD; Mercedes Mathias MD~ Examination: CT pelvis without intravenous contrast. 2-D sagittal and coronal reconstructions. Date and time of exam: 06/13/2025 at 12 00 p.m. Comparison study 10/11/2023 CTDI: vol (mGy) : 14.7 DLP: (mGycm) : 643 CLINICAL HISTORY: Left hip pain after a traumatic fall Technique: Multiple 3 mm axial sections of the pelvis have been obtained with the 64 slice high resolution scanner. 2-D sagittal and coronal reconstructions. Low dose protocols were performed. One or more of the following dose reduction techniques were used; automated exposure control, adjustment of the mA and/or KV according to patient size, use of iterative reconstruction technique. Findings: There is a 3 mm nonobstructive calculus in the lower third of the right kidney stable and unchanged there is major very extensive diverticulosis in throughout the entire sigmoid colon and rectum. The patient is status post disc insert at L4-L5 and posterior surgical fusion at L4, L5, and S1 bilaterally. 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 The appearance of the these are normal, and no fractures are seen anywhere in the sacrum anywhere in the pelvis on either side, and no fractures is seen involving either right or left femur. IMPRESSION: 1. This study is entirely negative for trauma. 2. 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 Again noted is a very small nonobstructive calculus in the lower pole medulla of the right kidney unchanged 4. Major very extensive diverticulosis in the sigmoid colon and rectum Dictated By: Sukhwinder Quintero MD Signed By: <Electronically signed by Sukhwinder Quintero MD in OV> 06/13/25 1348 Medications / Prescriptions Medications or Prescriptions considered but not ordered:: None Medication administrations:: Medication Administration History Sodium Chloride (Ns) 1,000 mls @ 100 mls/hr IV .Q10H ONE Stop: 06/13/25 21:00 Last Admin: 06/13/25 11:26 Dose: 100 mls/hr Documented By: ARF Discontinued Medications Diphtheria/Tetanus/Acell Pertussis (Diphth,Pertuss(Acell),Tet Vac 0.5 Ml Syr- Adult) 0.5 ml IMi .ONCE ONE Stop: 06/13/25 11:06 Last Admin: 06/13/25 11:27 Dose: 0.5 ml Documented By: ARF Fentanyl Citrate (Fentanyl Cit Inj 50 Mcg/Ml Amp 2ml) 50 mcg IVP X1 ONE Stop: 06/13/25 11:05 Last Admin: 06/13/25 11:27 Dose: 50 mcg Documented By: ARF Fentanyl Citrate (Fentanyl Cit Inj 50 Mcg/Ml Amp 2ml) 100 mcg IVP X1 ONE Stop: 06/13/25 13:26 Last Admin: 06/13/25 13:31 Dose: 100 mcg Documented By: DB Fentanyl Citrate (Fentanyl Cit Inj 50 Mcg/Ml Amp 2ml) 100 mcg IVP X1 ONE Stop: 06/13/25 16:47 Acetaminophen (Ofirmev Inj) 1,000 mg in 100 mls @ 250 mls/hr IV X1 ONE Stop: 06/13/25 12:36 Last Infusion: 06/13/25 13:03 Dose: Infused Documented By: Admin: 06/13/25 12:23 Dose: 250 mls/hr Documented By: ARF Clindamycin Phosphate 900 mg/ (IV Miscellaneous Supplies) 50 mls @ 50 mls/hr IV X1 ONE Stop: 06/13/25 13:39 Last Infusion: 06/13/25 14:40 Dose: Infused Documented By: Admin: 06/13/25 13:35 Dose: 50 mls/hr Documented By: DB Ketorolac Tromethamine (Ketorolac Inj 30 Mg/Ml Vial) 15 mg IVP X1 ONE Stop: 06/13/25 11:28 Last Admin: 06/13/25 11:40 Dose: 15 mg Documented By: ARF Lidocaine HCl (Lidocaine Hcl 1% 20 Ml Vial) 20 ml INFL X1 ONE Stop: 06/13/25 11:06 Last Admin: 06/13/25 11:27 Dose: 20 ml Documented By: ARF Ondansetron HCl (Ondansetron Inj 2 Mg/Ml Inj 2 Ml) 4 mg IVP X1 ONE; Protocol Stop: 06/13/25 11:04 Last Admin: 06/13/25 11:25 Dose: 4 mg Documented By: ARF Sodium Chloride (Sodium Cl Irrig Soln 500 Ml Btl) 500 ml IRRIG X1 ONE Stop: 06/13/25 11:06 Last Admin: 06/13/25 11:32 Dose: 500 ml Documented By: ARF See above Consultations Consultation(s) initiated? (list below): Yes Consultation #1 (Physician, Specialty, Details): See MDM Diagnosis Fall Differential Diagnosis: syncope, compression fracture, concussion with loss of consciousness and other (facial fractures ) Most likely diagnosis given after review of the tests above:: Closed blow-out fracture of left orbital floor Closed fracture of nasal bone Facial laceration Admission Indicated Admission indicated?: not indicated Admission Request Was there a request for admission?: No Disposition Plan Disposition Plan: Discharge Discharge Attestation Discharge Attestation: The patient and all family members were given an opportunity to ask questions and understood the discharge instructions. Discharge instructions specifically effects, indications for sooner follow up or return to the emergency department, and the expected course of current diagnosis. Patient condition: Stable Discharge Plan Plan Patient Disposition: HOME (Self Care) Patient condition on transfer: Stable Prescriptions/Referrals Prescriptions/Med Rec: New clindamycin HCl [Cleocin HCl] 300 mg capsule 600 mg PO TID Qty: 60 0RF No Action Ozempic 2 mg/dose (8 mg/3 mL) pen injector 2 mg subcut QWEEK Gemtesa 75 mg tablet 75 mg PO QDAY atenolol 50 MG tablet 25 mg PO DAILY Qty: 180 niacin 500 mg Tablet 500 mg PO QDAY zolpidem [Ambien] 10 mg Tablet 10 mg PO QPM losartan 100 mg Tablet 100 mg PO QDAY lovastatin 20 mg Tablet 20 mg PO QDAY hydrocodone-acetaminophen 5-325 mg tablet 1 tab PO TID MDD 3 Qty: 20 0RF Referrals: Mercedes Bruno MD [Primary Care Provider, Family Practice] - In 1 week Problem List Clinical Impression: Closed blow-out fracture of left orbital floor, Closed fracture nasal bone, Facial laceration Patient/Caregiver Discharge Instructions Discharge Activity: activity as tolerated Education Materials: ED Facial Fracture, ED Nose Fracture, with X-Ray Additional Instructions: Take your hydrocodone every 4-6 hours as needed for pain. Also start clindamycin antibiotic that has been prescribed and take it 3 times a day. Please be seen in 1 to 2 days for a wound check for your nasal and left facial lacerations. Sutures should come out in 5 days return to clinic to have the sutures removed. Dr. Paulson who was on-call at [facility] has agreed to see you as an outpatient early next week for your orbital fracture. The address to his office is [address] [place] [address] in [place], [place]. The phone number is [phone] Print Language: Cypriot Stand Alone Forms: Jimena Award Info., Patient Portal Info Letter
[2025-06-13] MEDS: ONDANSETRON INJ 2 MG/ML INJ 2 ML 4 MG IVP (11:25)
[2025-06-13] MEDS: SODIUM CHLORIDE 0.9% 1000 ML 1,000 ML 100 ML IV (11:26)
[2025-06-13] MEDS: fentaNYL CIT INJ 50 mCg/ML AMP 2ML IVP (11:27)
[2025-06-13] MEDS: DIPHTH,PERTUSS(ACELL),TET VAC 0.5 ML SYR- ADULT IMi (11:27)
[2025-06-13] MEDS: LIDOCAINE HCL 1% 20 ML VIAL INFL (11:27)
[2025-06-13] MEDS: SODIUM CL IRRIG SOLN 500 ML BTL IRRIG (11:32)
[2025-06-13] MEDS: KETOROLAC INJ 30 MG/ML VIAL 15 MG IVP (11:40)
[2025-06-13 11:41] LABS: Basophils # (Auto) 0.1 Thou/mm3 (0.0-0.2); Basophils % (Auto) 1 % (0-2.5); Eosinophils # (Auto) 0.3 Thou/mm3 (0.0-0.5); Eosinophils % (Auto) 4 % (0-10); Hematocrit 52.0 % (41.0-53.0); Hemoglobin 17.9 g/dL (13.5-16.0); Immature Granulocytes Auto 0.02 Thou/mm3 (0.00-0.00); Lymphocytes # (Auto) 1.4 Thou/mm3 (1.0-4.8); Lymphocytes % (Auto) 22 % (10-50); Mean Corpuscular HGB Conc 34.4 g/dl (31.0-37.0); Mean Corpuscular Hemoglobin 33.5 pg (25.0-35.0); Mean Corpuscular Volume 97 fL (80-100); Monocytes # (Auto) 0.6 Thou/mm3 (0.0-0.8); Monocytes % (Auto) 9 % (0-12); Neutrophils # (Auto) 4.2 Thou/mm3 (1.8-7.7); Neutrophils % (Auto) 63 % (37-80); Nucleated Red Blood Cell # 0.00 Thou/mm3 (0.00-0.00); Nucleated Red Blood Cell % 0 /100 WBC (0); Platelet Count 168 Thou/mm3 (140-440); RDW Standard Deviation 51.6 fL (35.1-43.9); Red Blood Count 5.34 Miln/mm3 (4.50-5.90); White Blood Count 6.7 Thou/mm3 (3.8-10.6)
--- NOTE | 2025-06-13 11:51 | XR_ITS ---
Examination: CT pelvis without intravenous contrast. 2-D sagittal and coronal reconstructions. Date and time of exam: 06/13/2025 at 12 00 p.m. Comparison study 10/11/2023 CTDI: vol (mGy) : 14.7 DLP: (mGycm) : 643 CLINICAL HISTORY: Left hip pain after a traumatic fall Technique: Multiple 3 mm axial sections of the pelvis have been obtained with the 64 slice high resolution scanner. 2-D sagittal and coronal reconstructions. Low dose protocols were performed. One or more of the following dose reduction techniques were used; automated exposure control, adjustment of the mA and/or KV according to patient size, use of iterative reconstruction technique. Findings: There is a 3 mm nonobstructive calculus in the lower third of the right kidney stable and unchanged there is major very extensive diverticulosis in throughout the entire sigmoid colon and rectum. The patient is status post disc insert at L4-L5 and posterior surgical fusion at L4, L5, and S1 bilaterally. 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 The appearance of the these are normal, and no fractures are seen anywhere in the sacrum anywhere in the pelvis on either side, and no fractures is seen involving either right or left femur. IMPRESSION: 1. This study is entirely negative for trauma. 2. 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 Again noted is a very small nonobstructive calculus in the lower pole medulla of the right kidney unchanged 4. Major very extensive diverticulosis in the sigmoid colon and rectum
[2025-06-13] MEDS: ACETAMINOPHEN IVPB 1,000 MG/100 ML VIAL 250 MG IV (12:23)
[2025-06-13 12:34] LABS: INR 1.1 (0.9-1.3); Partial Thromboplastin Time 26.2 Seconds (22.0-36.0); Prothrombin Time 12.0 Seconds (9.0-12.2)
[2025-06-13 12:46] LABS: Alanine Aminotransferase 26 U/L (10-49); Albumin, Serum 4.6 gm/dL (3.4-4.8); Albumin/Globulin Ratio 1.5 (1.2-2.2); Alkaline Phosphatase 47 U/L (46-116); Anion Gap 9 (7-16); Aspartate Amino Transferase 41 U/L (0-34); BUN/Creatinine Ratio 10 Ratio (12-20); Bilirubin,Total 1.7 mg/dL (0.3-1.2); Blood Urea Nitrogen 11 mg/dL (9-23); Calcium 9.3 mg/dL (8.3-10.6); Calcium (Corrected) 9.3 mg/dL (8.5-10.1); Carbon Dioxide 23.1 mMol/L (20.0-31.0); Chloride 106 mMol/L (98-107); Creatinine (Component) 1.1 mg/dL (0.6-1.3); Globulin 3.0 gm/dL (2.3-3.5); Glucose 124 mg/dL (74-106); Osmolality,Calculated 276 (275-295); Potassium 5.5 mMol/L (3.4-5.1); Sodium 138 mMol/L (136-145); Total Protein 7.6 gm/dL (5.7-8.2); Troponin I < 0.020 ng/mL (0.0-0.045); eGFR > 60 See Note
[2025-06-13] MEDS: fentaNYL CIT INJ 50 mCg/ML AMP 2ML 100 MCG IVP ×2 (13:31→17:09)
[2025-06-13] MEDS: CLINDAMYCIN 900MG IVPB 900 MG in PRE-MIXED 1 BAG 50 MG IV (13:35)
[2025-06-13 14:50] VITALS: BP 145/100; PULSE 73; RESP 20; TEMP 36.5; O2SAT 96
--- NOTE | 2025-06-13 15:19 | PC.CM ---
Addendum entered by Darline Landaverde RN 06/13/25 16:39: Dr. Velazquez states we can cancel the transfer because patient will be followed up as outpatient. I contacted [facility] and canceled transfer request. Addendum entered by Darline Landaverde RN 06/13/25 16:28: Tyler from [facility] called and I did a conference call with Dr. Velazquez. Dr. Paulson reviewed patient and he states patient can follow up as out patient in [place]. Dr. Velazquez was provided the information. The address is [address] [place] [address]. phone # [phone]. I called Briseyda and gave her the information. Addendum entered by Darline Landaverde RN 06/13/25 15:33: [id number] I called and initiated a transfer with Tyler at [facility] in [place]. I faxed over clinical. I connected Dr. Velazquez with [facility] to [facility]. Original Note: 1445 I called and left a message with [facility] and I faxed over information. I started packet and I made a CD. 1415 I received a referral to transfer patient for ENT. Patient has comminuted large acute blowout fx of left inferior orbital rim.
[2025-06-13 16:49] VITALS: BP 150/95; PULSE 62; RESP 20; TEMP 36.6; O2SAT 96
== END 2025-06-13 17:54 | disposition home or self-care (01) ==
PROVIDERS: Emergency Provider Family Medicine; PCP Family Medicine
DX: S01.412A Laceration without foreign body of left cheek and temporomandibular area, initial encounter (principal); S02.32XA Fracture of orbital floor, left side, initial encounter for closed fracture; S02.832A Fracture of medial orbital wall, left side, initial encounter for closed fracture; S02.40DA Maxillary fracture, left side, initial encounter for closed fracture; S79.912A Unspecified injury of left hip, initial encounter; S29.9XXA Unspecified injury of thorax, initial encounter; S19.9XXA Unspecified injury of neck, initial encounter; K57.30 Diverticulosis of large intestine without perforation or abscess without bleeding; M47.812 Spondylosis without myelopathy or radiculopathy, cervical region; I48.91 Unspecified atrial fibrillation; I10 Essential (primary) hypertension; E78.00 Pure hypercholesterolemia, unspecified; W01.190A Fall on same level from slipping, tripping and stumbling with subsequent striking against furniture, initial encounter; Y92.009 Unspecified place in unspecified non-institutional (private) residence as the place of occurrence of the external cause; Z98.1 Arthrodesis status; Z95.0 Presence of cardiac pacemaker; Z23 Encounter for immunization
CPT/HCPCS: 12013; 36415; 70450; 70486; 71045; 72125; 72192; 80053; 84484; 85025; 85610; 85730; 90471; 90715; 93005; 96365; 96366; 96375; 96376; 99284; A4217; J0131; J0736; J1885; J2405; J3010; J3490; J7030